=== PATIENT | female | born 2000 | race Two or more races ===

== ENCOUNTER 2019-07-30 15:38 | Emergency (ER) | payer OTHER ==
--- NOTE | 2019-07-30 16:49 | ED ---
Head Injury - HPI Summary HPI Summary: Patient complains of head injury while sledding yesterday. Patient states she knocked the side of her head on a pole as she went by. Had headache and nausea this a.m. which has resolved. Persistent dizziness. Denies LOC, any other pain injury or symptoms. - History Of Current Complaint Chief Complaint: EDHeadInjury Stated Complaint: POSS HEAD INJURY PER PT Time Seen by Provider: 07/30/19 16:46 Hx Obtained From: Patient Mechanism Of Injury: Blunt Trauma Onset/Duration: Started Hours Ago Onset of Pain: Immediate Severity Currently: Mild Severity Initially: Mild Pain Intensity: 3 Pain Scale Used: 0-10 Numeric Location of Head Injury: Parietal Character: Throbbing Associated Signs And Symptoms: Negative - Allergies/Home Medications Allergies/Adverse Reactions: Allergies Allergy/AdvReac Type Severity Reaction Status Date / Time No Known Allergies Allergy Verified 07/30/19 15:44 PMH/Surg Hx/FS Hx/Imm Hx Endocrine/Hematology History: Denies: Hx Anticoagulant Therapy Cardiovascular History: Denies: Hx Pacemaker/ICD History: Denies: Hx Dialysis Sensory History: Denies: Hx Eye Prosthesis Opthamlomology History: Denies: Hx Legally Blind EENT History: Denies: Hx Deafness Infectious Disease History: No Infectious Disease History: Denies: Traveled Outside the [place] in Last 30 Days - Family History Known Family History: Positive: Non-Contributory - Social History Alcohol Use: None Substance Use Type: Reports: Marijuana Smoking Status (MU): Never Smoked Tobacco Review of Systems Constitutional: Negative Eyes: Negative ENT: Negative Cardiovascular: Negative Respiratory: Negative Gastrointestinal: Negative Genitourinary: Negative Musculoskeletal: Negative Skin: Negative Neurological: Negative Psychological: Normal All Other Systems Reviewed And Are Negative: Yes Physical Exam - Summary Physical Exam Summary: Neuro exam normal. Full range of motion of neck and jaw. No evidence of wound to face, mouth, head. Triage Information Reviewed: Yes Vital Signs On Initial Exam: Initial Vitals Temp Pulse Resp BP Pulse Ox 97.8 F 81 18 137/84 98 07/30/19 15:41 07/30/19 15:41 07/30/19 15:41 07/30/19 15:41 07/30/19 15:41 Vital Signs Reviewed: Yes Appearance: Positive: Well-Appearing Skin: Positive: Warm Head/Face: Positive: Normal Head/Face Inspection Eyes: Positive: Normal Neck: Positive: Supple Respiratory/Lung Sounds: Positive: Clear to Auscultation Cardiovascular: Positive: Normal Abdomen Description: Positive: Nontender Musculoskeletal: Positive: Normal Neurological: Positive: Normal Psychiatric: Positive: Normal AVPU Assessment: Alert - Fatmata Coma Scale Best Eye Response: 4 - Spontaneous Best Motor Response: 6 - Obeys Commands Best Verbal Response: 5 - Oriented Coma Scale Total: 15 Procedures - Sedation Patient Received Moderate/Deep Sedation with Procedure: No Diagnostics - Vital Signs Vital Signs Temp Pulse Resp BP Pulse Ox 07/30/19 15:41 97.8 F 81 18 137/84 98 - Laboratory Lab Statement: Any lab studies that have been ordered have been reviewed, and results considered in the medical decision making process. Head Injury Course/Dx Course Of Treatment: Patient complains of head injury while sledding yesterday. Patient states she knocked the side of her head on a pole as she went by. Had headache and nausea this a.m. which has resolved. Persistent dizziness. Denies LOC, any other pain injury or symptoms. Vital signs within normal limits. Per [facility] head CT rules, patient does not meet criteria for head CT. - Diagnoses Provider Diagnoses: Head injury, Mild concussion Discharge ED - Sign-Out/Discharge Documenting (check all that apply): Patient Departure - Discharge Plan Condition: Stable Disposition: HOME Patient Education Materials: Concussion (ED), Head Injury (ED) Referrals: No Primary Care Phys,NOPCP [Primary Care Provider] - Additional Instructions: You may alternate ibuprofen 600 mg with Tylenol 650 mg every 3 hours as needed for headache. Concussion symptoms are likely to come and go over the next couple weeks, and may be triggered by exertion, long periods of concentration, bright lights. Return to the ED for any new or worsening symptoms including worsening headache, vomiting, neurological deficits, vision change. - Billing Disposition and Condition Condition: STABLE Disposition: Home - Attestation Statements Provider Attestation: I was available for consultation for this patient. I did not evaluate the patient, or participate in any medical decision making or disposition decisions unless I am specifically named in the chart as having consulted on the patient. If I have consulted on the patient, please see my own ED note on the patient encounter. Deborah Mc MD
[2019-07-30 17:33] VITALS: BP 122/82
== END 2019-07-30 17:31 | disposition home or self-care (01) ==
LOC: ED 15:38
DX: S06.0X9A Concussion with loss of consciousness of unspecified duration, initial encounter (principal); W22.09XA Striking against other stationary object, initial encounter; Y93.23 Activity, snow (alpine) (downhill) skiing, snowboarding, sledding, tobogganing and snow tubing; Y92.9 Unspecified place or not applicable
CPT/HCPCS: 99281